=== PATIENT | female | born 1970 | race Hispanic/Latino ===

== ENCOUNTER 2018-03-11 11:10 | Emergency (ER) | payer MEDICARE ==
[2018-03-11 11:26] VITALS: TEMP 97.5
--- NOTE | 2018-03-11 11:38 | C.PDOC ---
History Of Present Illness 47 y/o female, w/PMhx of HTN, presents to the ER from doctor's office, complaining of near syncope and lightheadedness which began in the morning today. Patient states that she was in a pascual so she took her morning and evening bp medications at 9 am. Patient reports that she normally takes 1 dose in the morning and 1 dose in the evening. She notes that she has history of chonic neck pain, she is currently on Oxycontin and she took her routine dose in the morning today. Time Seen by Provider: 03/11/18 11:35 Chief Complaint (Nursing): Syncope History Per: Patient History/Exam Limitations: no limitations Onset/Duration Of Symptoms: Hrs Current Symptoms Are (Timing): Still Present Severity: Moderate Past Medical History Reviewed: Historical Data, Nursing Documentation, Vital Signs Vital Signs: Last Vital Signs Temp 97.5 F L 03/11/18 11:15 Pulse 96 H 03/11/18 11:15 Resp 18 03/11/18 11:15 BP 61/33 L 03/11/18 11:15 Pulse Ox 96 03/11/18 11:15 - Medical History PMH: HTN Surgical History: No Surg Hx Family History: States: No Known Family Hx - Social History Hx Alcohol Use: No Hx Substance Use: No - Immunization History Hx Tetanus Toxoid Vaccination: No Hx Influenza Vaccination: No Hx Pneumococcal Vaccination: No Review Of Systems Except As Marked, All Systems Reviewed And Found Negative. Constitutional: Negative for: Fever, Chills Cardiovascular: Negative for: Chest Pain Respiratory: Negative for: Shortness of Breath Neurological: Positive for: Other (near-syncope, lightheadedness) Physical Exam - Physical Exam Appears: Other (mild distress) Skin: Normal Color, Warm, Dry Head: Atraumatic, Normacephalic Eye(s): bilateral: Normal Inspection Cardiovascular: Rhythm Regular Respiratory: Normal Breath Sounds, No Rales, No Rhonchi, No Wheezing Pulses: Left Radial: Absent (no palpable pulse), Right Radial: Absent (no palpable pulse) Neurological/Psych: Oriented x3, Normal Speech Additional Physical Exam Comments: Systolic Blood Pressure 70 mm Hg on the monitor ED Course And Treatment - Laboratory Results Result Diagrams: 03/11/18 11:45 03/11/18 12:45 ECG: Interpreted By Me, Viewed By Me ECG Rhythm: Sinus Tachycardia Rate From EC O2 Sat by Pulse Oximetry: 96 (RA) Pulse Ox Interpretation: Normal Progress - Re-Evaluation Re-evaluation Note: 03/11/18 13:00 SBP 80. NO UO. WILL CONT IVF 03/11/18 14:49 SBP 101. AMBUL WO DIFF ASYMPT. PT REQUESTING DC HOME - Data Reviewed Data Reviewed: Lab, EKG - Critical Care Citical Care: Excluding Proc Time Critical Care Time: 90 minutes Disposition Counseled Patient/Family Regarding: Studies Performed, Diagnosis, Need For Follo wup - Disposition Referrals: YOUR,PMD [Other] Disposition: HOME/ ROUTINE Disposition Time: 14:49 Condition: IMPROVED Instructions: Low Blood Pressure (DC) Forms: [employer] (Croatian) - Clinical Impression Clinical Impression: Near syncope, Hypotension, Accidental overdose - Scribe Statement The provider has reviewed the documentation as recorded by the Bebeto[employer]jerrell Cast Provider Attestation: All medical record entries made by the Scribe were at my direction and personally dictated by me. I have reviewed the chart and agree that the record accurately reflects my personal performance of the history, physical exam, medical decision making, and the department course for this patient. I have also personally directed, reviewed, and agree with the discharge instructions and disposition.
[2018-03-11 11:54] LABS: BASO # 0.1 K/uL (0.0-0.2); BASO % 0.9 % (0.0-2.0); EOS # 0.2 K/uL (0.0-0.7); EOS % 1.8 % (0.0-4.0); HEMOGLOBIN 14.5 g/dL (11.0-16.0); LYMPH # 3.1 K/uL (1.0-4.3); MEAN CELL VOLUME 90.5 fL (81.0-99.0); MEAN CORPUSCULAR HEMOGLOBIN 31.1 pg (27.0-31.0); MEAN CORPUSCULAR HGB CONC 34.4 g/dL (33.0-37.0); MEAN PLATELET VOLUME 8.2 fL (7.2-11.7); MONO # 0.7 K/uL (0.0-0.8); NEUT # 7.8 K/uL (1.8-7.0); NEUT % 65.3 % (50.0-75.0); NRBC % 0.2 % (0.0-2.0); RBC 4.66 Mil/uL (3.80-5.20); RED CELL DISTRIBUTION WIDTH 13.5 % (11.5-14.5); WHITE BLOOD COUNT 11.9 K/uL (4.8-10.8)
[2018-03-11] MEDS ORDERED: Sodium Chloride 0.9% 2,000 ML ONE (12:02)
[2018-03-11] MEDS ORDERED: Sodium Chloride 0.9% 500 ML IV ONE (12:02)
[2018-03-11 13:04] LABS: BLOOD UREA NITROGEN 21 mg/dL (7-17); CALCIUM 7.9 mg/dl (8.6-10.4); GFR NON-AFRICAN AMERICAN 59
[2018-03-11] MEDS ORDERED: Sodium Chloride 0.9% 1,000 ML IV ONE (13:05)
[2018-03-11 14:35] VITALS: BP 101/62; PULSE 79; RESP 18
[2018-03-11 14:48] VITALS: O2SAT 96
--- NOTE | 2018-03-13 08:17 | CARD ---
APPROVED REPORT Date of service: 03/11/2018 EKG Measurement Heart [id number] <Conclusion> Sinus tachycardia Left axis deviation Abnormal ECG
== END 2018-03-11 14:56 | disposition home or self-care (01) ==
LOC: C.ER 11:10
DX: I95.9 Hypotension, unspecified (principal); R55 Syncope and collapse; T50.991A Poisoning by other drugs, medicaments and biological substances, accidental (unintentional), initial encounter; Y92.89 Other specified places as the place of occurrence of the external cause
CPT/HCPCS: 80048; 82948; 85025; 93005; 99285; J7030